=== PATIENT | male | born 1985 | race African-American/Black ===

== ENCOUNTER 2024-12-19 21:40 | Emergency (ER) | payer OTHER ==
[~2024-12-19] VITALS: Ht 193 cm; Wt 62.6 kg
[2024-12-19 21:46] VITALS: TEMP 98.8
[2024-12-19] MEDS: SODIUM CHLORIDE 0.9% 1000ML 2,000 ML IV STA (22:13)
[2024-12-19 22:21] LABS: BASOPHILS # (AUTO) 0.1 (0.0-0.1); BASOPHILS % 0.9 % (0.0-1.0); EOSINOPHILS # (AUTO) 0.3 (0.0-0.4); EOSINOPHILS % 2.9 % (0.0-6.0); HEMATOCRIT 28.2 % (38.2-49.6); HEMOGLOBIN 9.4 g/dL (14.0-18.0); LYMPHOCYTES # (AUTO) 2.8 (1.0-3.2); LYMPHOCYTES % 30.6 % (18.0-39.1); MEAN CORPUSCULAR HEMOGLOBIN 30.6 pg (28-32); MEAN CORPUSCULAR HGB CONC 33.3 g/dL (31-35); MEAN CORPUSCULAR VOLUME 91.9 fL (81-99); MONOCYTES # (AUTO) 1.3 (0.2-0.8); MONOCYTES % 14.3 % (4.4-11.3); NEUTROPHILS # (AUTO) 4.7 (2.1-6.9); NEUTROPHILS % 51.1 % (38.7-80.0); PLATELET COUNT 645 x10e3/uL (140-360); RED BLOOD COUNT 3.07 x10e6/uL (4.3-5.7); WHITE BLOOD COUNT 9.25 x10e3/uL (4.8-10.8)
[2024-12-19 22:46] LABS: ALBUMIN 4.6 g/dL (3.5-5.0); ALBUMIN/GLOBULIN RATIO 1.4 (0.8-2.0); BILIRUBIN,TOTAL 2.8 mg/dL (0.2-1.2); CALCIUM 9.4 mg/dL (8.4-10.2); CREATININE, SERUM 0.7 mg/dL (0.72-1.25); TOTAL PROTEIN 7.8 g/dL (6.5-8.1)
[2024-12-19 22:58] LABS: CREATINE KINASE 28 IU/L (30-200)
[2024-12-19] MEDS: Morphine 4mg INJECTION 4 MG/ML INJ IV STA (23:05)
[2024-12-19] MEDS: ONDANSETRON HCL INJ 2MG/ML 2ML 2 MG/ML VIAL IV STA (23:05)
[2024-12-19 23:10] VITALS: PULSE 64; RESP 16
[2024-12-19 23:15] LABS: TROPONIN I < 0.05 ng/mL (0.0-0.40)
[2024-12-19 23:52] VITALS: BP 132/84; PULSE 63; RESP 16; O2SAT 100
== END 2024-12-19 23:43 | disposition left against medical advice (07) ==
LOC: ER 21:46
DX: D57.00 Hb-SS disease with crisis, unspecified (principal); D75.839 Thrombocytosis, unspecified
CPT/HCPCS: 36415; 71046; 80053; 82550; 84484; 85025; 85045; 93005; 99284; J2270; J2405

== ENCOUNTER 2024-12-25 12:50 | Emergency (ER) | payer OTHER ==
[~2024-12-25] VITALS: Ht 193 cm; Wt 62.6 kg
[2024-12-25 13:32] VITALS: RESP 18; TEMP 98.2
[2024-12-25] MEDS ORDERED: Morphine 4mg INJECTION 4 MG/ML INJ IV STA (13:34)
[2024-12-25 14:04] LABS: BASOPHILS # (AUTO) 0.1 (0.0-0.1); BASOPHILS % 0.8 % (0.0-1.0); EOSINOPHILS # (AUTO) 0.2 (0.0-0.4); EOSINOPHILS % 2.2 % (0.0-6.0); HEMATOCRIT 26.2 % (38.2-49.6); LYMPHOCYTES % 36.4 % (18.0-39.1); MEAN CORPUSCULAR HEMOGLOBIN 31.8 pg (28-32); MEAN CORPUSCULAR HGB CONC 34.4 g/dL (31-35); MEAN CORPUSCULAR VOLUME 92.6 fL (81-99); MONOCYTES # (AUTO) 1.3 (0.2-0.8); MONOCYTES % 15.4 % (4.4-11.3); NEUTROPHILS # (AUTO) 3.7 (2.1-6.9); NEUTROPHILS % 44.8 % (38.7-80.0); PLATELET COUNT 784 x10e3/uL (140-360); RED BLOOD COUNT 2.83 x10e6/uL (4.3-5.7); RED CELL DISTRIBUTION WIDTH 20.2 % (11.7-14.4)
[2024-12-25] MEDS: ONDANSETRON HCL INJ 2MG/ML 2ML 2 MG/ML VIAL IV STA (14:19)
[2024-12-25] MEDS: SODIUM CHLORIDE 0.9% 1000ML 1,000 ML IV STA (14:19)
[2024-12-25] MEDS: DIPHENHYDRAMINE HCL INJ 50 MG/ML VIAL IV ONE (14:19)
[2024-12-25] MEDS: HYDROMORPHONE 1MG/1ML INJ IV STA ×2 (14:19→16:46)
[2024-12-25 14:33] LABS: INR 1.2; PROTHROMBIN TIME 15.9 seconds (11.9-14.5)
[2024-12-25 14:34] LABS: PARTIAL THROMBOPLASTIN TIME 29.9 seconds (23.8-35.5)
[2024-12-25 14:40] LABS: ALBUMIN 4.3 g/dL (3.5-5.0); ALBUMIN/GLOBULIN RATIO 1.5 (0.8-2.0); ANION GAP 12.6 mmol/L (8-16); BILIRUBIN,TOTAL 3.3 mg/dL (0.2-1.2); CALCIUM 8.8 mg/dL (8.4-10.2); CREATININE, SERUM 0.7 mg/dL (0.72-1.25); POTASSIUM 3.6 mmol/L (3.5-5.1); TOTAL PROTEIN 7.2 g/dL (6.5-8.1)
[2024-12-25 14:49] LABS: TROPONIN I 0.003 ng/mL (0-0.300)
[2024-12-25 15:14] VITALS: PULSE 60; O2SAT 100
[2024-12-25] MEDS ORDERED: HYDROCODONE/APAP 10MG-325MG TAB PO ONE (16:15)
[2024-12-25] MEDS: SODIUM CHLORIDE 0.45% 1,000 ML IV ONE (16:45)
== END 2024-12-25 17:47 | disposition home or self-care (01) ==
LOC: ER 13:36
DX: D57.00 Hb-SS disease with crisis, unspecified (principal)
CPT/HCPCS: 36415; 71045; 80053; 82550; 83735; 84484; 85025; 85045; 85610; 85730; 99283; J1171; J1200; J2405; J7030